=== PATIENT | female | born 1975 | race Asian ===

== ENCOUNTER 2021-11-13 09:36 | Outpatient (CLI) | payer OTHER | END 2021-11-13 09:37 | disposition home or self-care (01) | LOC: CSHLAB 09:36 | PROVIDERS: ATTEND Obstetrics & Gynecology | DX: Z01.818 Encounter for other preprocedural examination (principal); R10.2 Pelvic and perineal pain; G89.29 Other chronic pain | CPT/HCPCS: 93005; 93010 ==

== ENCOUNTER 2021-11-14 06:06 | Day surgery (SDC) | payer OTHER ==
[2021-11-13 11:14] LABS: Hemoglobin 13.6 g/dL (12.0-15.5); Mean Corpuscular HGB CONC 33.3 g/dL (32.0-36.0); Mean Corpuscular Hemoglobin 29.5 pg (27.0-33.0); Mean Corpuscular Volume 88.7 fl (81.6-98.3); Mean Platelet Volume 11.3 fl (7.4-10.4); Platelet Count 269 10x3/uL (150-450); RBC Distribution Width 11.9 % (11.5-14.5); Red Blood Cell (RBC) Count 4.61 10x6/uL (3.90-5.03); White Blood Cell (WBC) Count 7.9 10x3/uL (3.5-10.5)
[2021-11-13 11:53] LABS: BHCG - Serum Negative (NEGATIVE); Pregs Control Background? CLEAR/WHITE (CLR/WHITE); Pregs Control Bar Appear? YES (CONTROL BAR)
[2021-11-13 12:11] LABS: Anion Gap 14 mmol/L (10-20); BUN (Urea Nitrogen) 14 mg/dL (7.0-18.7); Calc. Creatinine Clearance 0 mL/min (70-130); Calcium 9.4 mg/dL (7.8-10.44); Carbon Dioxide 25 mmol/L (22-29); Chloride 106 mmol/L (98-107); Estimated GFR 103; Glucose 103 mg/dL (70-105); Potassium 4.8 mmol/L (3.5-5.1); Sodium 140 mmol/L (136-145)
[2021-11-13 14:27] VITALS: BMI 24.7
[2021-11-14] MEDS ORDERED: EPINEPHrine 1 MG/ML AMP ONE (06:29)
[2021-11-14] MEDS ORDERED: Bupivacaine PF 0.5% 30 ML VIAL ONE (06:29)
[2021-11-14] MEDS ORDERED: Lidocaine 1% MPF 2 ML VIAL ONE (06:33)
[2021-11-14] MEDS ORDERED: Gabapentin 300 MG CAP ONE (06:33)
[2021-11-14] MEDS ORDERED: CeleCOXIB 100 MG CAP ONE (06:33)
[2021-11-14] MEDS ORDERED: Famotidine/PF 20 mg/2ml Vial ONE (06:34)
[2021-11-14] MEDS ORDERED: PROPOFOL 20 ML ONE (07:15)
[2021-11-14] MEDS ORDERED: Rocuronium Bromide 10 MG/ML (10ML VIAL) ONE (07:16)
[2021-11-14] MEDS ORDERED: Fentanyl 100 MCG/2 ML VIAL ONE ×2 (07:16→08:17)
[2021-11-14] MEDS ORDERED: Lidocaine 1% PF 5 ML VIAL ONE (07:16)
[2021-11-14] MEDS ORDERED: Ondansetron PF 4 MG/2 ML Vial ONE (07:16)
[2021-11-14] MEDS ORDERED: Dexamethasone 4 mg/ml Vial ONE (07:16)
[2021-11-14] MEDS ORDERED: CEFAZOLIN 2 GM VIAL ONE (07:23)
[2021-11-14] MEDS ORDERED: Midazolam HCl 2 mg/2 ml Vial ONE (07:29)
[2021-11-14] MEDS ORDERED: Ropivacaine 0.2% 550 ML 550 ML NERVE BLCK SCH (08:30)
[2021-11-14] MEDS ORDERED: Glycopyrrolate 0.2 MG/ML 5 ML SYRINGE ONE (09:13)
[2021-11-14] MEDS ORDERED: Meperidine HCl/PF 25 MG/ML VIAL ONE (09:17)
[2021-11-14] MEDS ORDERED: HYDROcodone/Acetaminophen 5/325 mg Tablet ONE (11:00)
[2021-11-14] MEDS ORDERED: Ondansetron ODT 4 MG TAB ONE (12:35)
== END 2021-11-14 13:40 | disposition home or self-care (01) ==
LOC: CSHSDC 06:06
PROVIDERS: ATTEND Obstetrics & Gynecology
PROC: 8E0W4CZ Robotic Assisted Procedure of Trunk Region, Percutaneous Endoscopic Approach (ICD-10-PCS; principal; 2021-11-14)
PROC: 0UT74ZZ Resection of Bilateral Fallopian Tubes, Percutaneous Endoscopic Approach (ICD-10-PCS; principal; 2021-11-14)
PROC: 0UT94ZZ Resection of Uterus, Percutaneous Endoscopic Approach (ICD-10-PCS; principal; 2021-11-14)
DX: D25.9 Leiomyoma of uterus, unspecified (principal); N80.0 Endometriosis of uterus; E11.9 Type 2 diabetes mellitus without complications; I10 Essential (primary) hypertension; Z79.84 Long term (current) use of oral hypoglycemic drugs; Z79.890 Hormone replacement therapy; Z79.899 Other long term (current) drug therapy; Z88.2 Allergy status to sulfonamides; Z20.822 Contact with and (suspected) exposure to COVID-19
CPT/HCPCS: 36415; 80048; 84703; 85027; 86850; 86900; 86901; 87811; 88307; A4306; C1776; J0171; J0690; J1100; J2175; J2250; J2405; J2704; J2795; J3010; Q0162; S0020; S0028